=== PATIENT | female | born 1995 | race Caucasian/White ===

== ENCOUNTER 2021-05-28 03:48 | Emergency (ER) | payer MEDICAID ==
[~2021-05-28] VITALS: Ht 157.5 cm; Wt 69.2 kg
[2021-05-28 03:51] VITALS: BP 130/85
== END 2021-05-28 04:50 | disposition home or self-care (01) ==
LOC: ED 04:31
DX: U07.1 COVID-19 (principal); F41.1 Generalized anxiety disorder
CPT/HCPCS: 99281